=== PATIENT | female | born 1955 | race Two or more races ===

== ENCOUNTER 2024-10-09 08:14 | Emergency (ER) | payer MEDICARE, OTHER ==
[~2024-10-09] VITALS: Ht 154.9 cm; Wt 70.3 kg
[2024-10-09 08:31] VITALS: BP 106/62
[2024-10-09] MEDS ORDERED: OSELTAMIVIR PHOSPHATE 75 MG CAPSULE ONE (09:02)
[2024-10-09] MEDS ORDERED: IBUPROFEN 600 MG TABLET ONE (09:02)
[2024-10-09 09:03] VITALS: TEMP 100
[2024-10-09] MEDS: IBUPROFEN 600 MG TABLET PO ONE (09:03)
[2024-10-09] MEDS: OSELTAMIVIR PHOSPHATE 75 MG CAPSULE PO ONE (09:03)
[2024-10-09] MEDS ORDERED: OSEL75CA PO (09:19)
[2024-10-09] MEDS ORDERED: ALBU18HF2 INH (09:19)
[2024-10-09 09:32] VITALS: O2SAT 98
== END 2024-10-09 09:32 | disposition home or self-care (01) ==
LOC: ER 08:20
DX: J11.1 Influenza due to unidentified influenza virus with other respiratory manifestations (principal); J45.909 Unspecified asthma, uncomplicated; M19.90 Unspecified osteoarthritis, unspecified site; R05.9 Cough, unspecified; R50.9 Fever, unspecified
CPT/HCPCS: 71045-TC

== ENCOUNTER 2024-10-11 10:50 | Emergency (ER) | payer MEDICARE, OTHER ==
[~2024-10-11] VITALS: Ht 157.5 cm; Wt 70.3 kg
[~2024-10-11 10:50] MED LIST: ALBU18HF2 INH; OSEL75CA PO
[2024-10-11 13:38] VITALS: BP 133/84; TEMP 98.8; O2SAT 98
== END 2024-10-11 13:39 | disposition home or self-care (01) ==
LOC: ER 11:08
DX: J11.1 Influenza due to unidentified influenza virus with other respiratory manifestations (principal); J45.909 Unspecified asthma, uncomplicated; Z20.822 Contact with and (suspected) exposure to COVID-19
CPT/HCPCS: 86403-TC; 87070-TC